=== PATIENT | male | born 1980 | race Caucasian/White ===

== ENCOUNTER → 2022-03-26 | Day surgery (SDC) | payer OTHER ==
[~2022-03-26] MED LIST: CLARINEX5 MG PO; MYCOSTATIN CREA15 GM TOP; SUBOXONE 8 MG-1 EACH SL
== END | disposition home or self-care (01) ==
LOC: OR 07:42
DX: K62.5 Hemorrhage of anus and rectum (principal); K64.1 Second degree hemorrhoids; K59.09 Other constipation; E66.9 Obesity, unspecified; Z68.30 Body mass index [BMI] 30.0-30.9, adult; Z72.0 Tobacco use
CPT/HCPCS: J2001; J2704; J7040